=== PATIENT | male | born 1975 | race Two or more races ===

== ENCOUNTER 2024-05-17 09:40 | Emergency (ER) | payer SELFPAY ==
[2024-05-17 10:38] LABS: BASOPHILS ABSOLUTE AUTO 0.05 K/uL (0.00-0.20); BASOPHILS PERCENT AUTO 0.5 % (0.0-1.0); EOSINOPHILS ABSOLUTE AUTO 0.04 K/uL (0.00-0.45); EOSINOPHILS PERCENT AUTO 0.4 % (0.0-6.0); HEMATOCRIT 35.6 % (42.0-52.0); IMMATURE GRAN ABSOLUTE AUTO 0.03 K/uL (0.00-0.05); IMMATURE GRAN PERCENT AUTO 0.3 % (0.0-0.4); LYMPHOCYTES ABSOLUTE AUTO 1.98 K/uL (1.00-4.80); LYMPHOCYTES PERCENT AUTO 18.2 % (24.0-44.0); MEAN CORPUSCULAR HEMOGLOBIN 26.3 pg (28.0-32.0); MEAN CORPUSCULAR HGB CONC 33.7 g/dL (32.0-36.0); MEAN CORPUSCULAR VOLUME 77.9 fL (83.0-99.0); MEAN PLATELET VOLUME 10.2 fL (9.4-12.4); MONOCYTES ABSOLUTE AUTO 0.75 K/uL (0.00-0.80); MONOCYTES PERCENT AUTO 6.9 % (0.0-8.0); NEUTROPHILS ABSOLUTE AUTO 8.02 K/uL (1.80-7.70); NEUTROPHILS PERCENT AUTO 73.7 % (41.0-71.0); PLATELET COUNT,PLT 418 K/uL (150-400); RED BLOOD CELL COUNT 4.57 M/uL (4.52-5.90); WHITE BLOOD CELL COUNT,WBC 10.87 K/uL (3.9-11.3)
[2024-05-17] MEDS: Sodium Chloride 0.9% 1,000 ML IV STA ×2 (10:38→12:49)
[2024-05-17] MEDS: Morphine 4 MG/ML Syringe IVPUSH STA ×2 (10:39→12:52)
[2024-05-17] MEDS: Ondansetron 4 MG/2 ML SDV IVPUSH STA (10:39)
[2024-05-17] MEDS: Sodium Chloride 0.9% 10 ML Syringe FLUSH PRN (10:42)
[2024-05-17] MEDS: Sodium Chloride 0.9% 2.5 ML Syringe FLUSH PRN (10:42)
[2024-05-17 10:52] LABS: A/G RATIO 0.9 (0.9-1.6); ALBUMIN 3.5 g/dL (3.4-5.0); BILIRUBIN TOTAL 0.4 mg/dL (0.2-1.0); CALCIUM 9.2 mg/dL (8.5-10.1); CARBON DIOXIDE,CO2 30.2 mmol/L (21.0-32.0); CREATININE 1.5 mg/dL (0.8-1.3); EST CRCL DRUG DOSING (CG) 54.94 mL/min; MAGNESIUM 1.9 mg/dL (1.8-2.4); PROTEIN TOTAL,TP 7.3 g/dL (6.4-8.2)
[2024-05-17 11:18] LABS: HEMOGLOBIN A1C 11.6 %
[2024-05-17] MEDS ORDERED: Glucagon,Human Recombinant 1 MG Vial IM PRN (11:50)
[2024-05-17] MEDS ORDERED: 50% Dextrose in Water 50 ML Syringe IVPUSH PRN (11:50)
[2024-05-17] MEDS: Insulin Regular, Human 100 Units/ML 10 ML Vial IVPUSH STA (12:51)
[2024-05-17] MEDS: Iopamidol 755 MG/ML 500 ML Multipack Bottle IVPUSH STA (14:05)
[2024-05-17 14:42] LABS: APPEARANCE,URINE CLEAR; BILIRUBIN,URINE NEGATIVE (NEGATIVE); COLOR,URINE YELLOW; GLUCOSE,URINE >=1000 mg/dL (NEGATIVE); KETONES,URINE NEGATIVE (NEGATIVE); LEUKOCYTE ESTERASE,URINE NEGATIVE (NEGATIVE); NITRITE,URINE NEGATIVE (NEGATIVE); OCCULT BLOOD,URINE SMALL (NEGATIVE); PROTEIN,URINE 100 mg/dL (NEGATIVE); UROBILINOGEN,URINE 0.2 EU/dL (<2.0)
[2024-05-17 14:54] LABS: EPITHELIAL CELLS,URINE RARE (NONE-FEW); WBC,URINE 0-1 (0-5/HPF)
[2024-05-17 14:55] LABS: BACTERIA,URINE RARE (NEGATIVE)
[2024-05-17 15:05] LABS: CALCIUM 8.4 mg/dL (8.5-10.1); CREATININE 1.3 mg/dL (0.8-1.3); EST CRCL DRUG DOSING (CG) 63.39 mL/min
== END 2024-05-17 16:04 | disposition home or self-care (01) ==
LOC: MW.ED 09:40
DX: R10.84 Generalized abdominal pain (principal); R11.2 Nausea with vomiting, unspecified; I10 Essential (primary) hypertension; E11.9 Type 2 diabetes mellitus without complications; Z75.8 Other problems related to medical facilities and other health care
CPT/HCPCS: 36415; 74177; 80048; 80053; 81001; 82009; 82947; 83036; 83690; 83735; 84100; 84484; 85025; 93005; 96361; 96374; 96375; 96376; 99285; J1815; J2270; J2405; J3490; J7030; Q9967; 93010; 99284